=== PATIENT | male | born 1945 | race Caucasian/White ===

== ENCOUNTER → 2019-07-23 | Outpatient (CLI) | payer SELFPAY ==
[~2019-07-23] MED LIST: ACET325 PO; ALBU90OI INH; ASPI81CH PO; ATOR40TA PO; Aspirin EC81 MG PO; B Complex-Foli1 EACH PO; CALCIUM CIT 311 EACH PO; CEFP200 PO; CEPH500 PO; CHEMO; Culturelle1 CAP PO; Eligard45 MG SQ; Fish Oil Conc1000 MG PO; Flomax0.4 MG PO; Folic Acid-Vit1 EACH PO; LEVO750 PO; METO25 PO; METO25ER PO; PRED5; PREDNISONE; Prinivil10 MG PO; Robaxin750 MG PO; THERA1 EACH PO; TRIDERM28.4 GM TOP; UNKNOWN BP MED
[2019-07-23 15:12] LABS: Alanine Aminotransfer (ALT/SGP 35 U/L (12-78); Albumin, Blood 2.3 g/dL (3.4-5.0); Albumin/Globulin Ratio 0.6 (0.8-1.8); Alk Phos 503 U/L (50-136); Anion Gap 6 mmol/L (6-16); Aspartate Aminotrans (AST/SGOT 138 U/L (12-37); Bilirubin, Total 0.5 mg/dL (0.1-1.0); Blood Urea Nitrogen 15 mg/dL (8-24); Bun/Creatinine Ratio 17.7 (12.0-20.0); CO2, Blood 28 mmol/L (21-32); Chloride, Blood 107 mmol/L (98-108); Creatinine, Blood 0.85 mg/dL (0.60-1.20); Globulin, Blood 3.7 g/dL (2.2-4.0); Glomerular Filtration Rate >60 (60-); Glucose, Blood 104 mg/dL (70-99); Potassium, Blood 4.7 mmol/L (3.5-5.5); Sodium, Blood 141 mmol/L (136-145)
[2019-07-23 15:14] LABS: PSA, %Free 46.8 %
== END | disposition home or self-care (01) ==
LOC: LAB SHORT 12:58 → LAB 12:58
PROVIDERS: Internal Medicine Hematology & Oncology
DX: C61 Malignant neoplasm of prostate (principal)
CPT/HCPCS: 80053; 84153; 84154

== ENCOUNTER 2019-07-25 12:14 | Inpatient (IN) | payer MEDICARE ==
[~2019-07-25] VITALS: Ht 175.3 cm; Wt 80.6 kg
[~2019-07-25 12:14] MED LIST changes: -ACET325 PO; -B Complex-Foli1 EACH PO; -CALCIUM CIT 311 EACH PO; -CEFP200 PO; -Culturelle1 CAP PO; -Fish Oil Conc1000 MG PO; -Folic Acid-Vit1 EACH PO; -LEVO750 PO; -METO25ER PO; -PRED5; -THERA1 EACH PO
[2019-07-25 12:50] LABS: Hemoglobin 10.3 g/dL (13.5-17.5); Mean Corpuscular HGB 26.4 pg (26.0-34.0); Mean Corpuscular HGB Conc 31.2 g/dL (31.5-36.5); Mean Corpuscular Volume 85 fL (80-100); Mean Platelet Volume 8.9 fL (9.1-12.4); NRBC ABSOLUTE 0.12 K/mm3 (0.00-0.02); NRBC Auto 0.5 /100 WBC (0.0-0.2); Platelet Count 291 K/mm3 (150-400); RDW Coefficient Variation 20.2 % (11.7-14.2); RDW Standard Deviation 62.2 fL (35.1-46.3); White Blood Cell Count 23.46 K/mm3 (4.00-11.30)
[2019-07-25 13:09] LABS: Alanine Aminotransfer (ALT/SGP 32 U/L (12-78); Albumin, Blood 2.4 g/dL (3.4-5.0); Albumin/Globulin Ratio 0.5 (0.8-1.8); Alk Phos 638 U/L (50-136); Anion Gap 8 mmol/L (6-16); Aspartate Aminotrans (AST/SGOT 273 U/L (12-37); Bilirubin, Total 0.5 mg/dL (0.1-1.0); Blood Urea Nitrogen 18 mg/dL (8-24); Bun/Creatinine Ratio 19.5 (12.0-20.0); CO2, Blood 22 mmol/L (21-32); Calcium, Blood 7.7 mg/dL (8.5-10.1); Chloride, Blood 107 mmol/L (98-108); Creatinine, Blood 0.92 mg/dL (0.60-1.20); Globulin, Blood 4.4 g/dL (2.2-4.0); Glomerular Filtration Rate >60 (60-); Glucose, Blood 106 mg/dL (70-99); Potassium, Blood 3.9 mmol/L (3.5-5.5); Sodium, Blood 137 mmol/L (136-145); Total Protein, Blood 6.8 g/dL (6.4-8.2)
[2019-07-25 13:10] LABS: BAND PERCENT MAN 2 % (0-8); BASOPHILS PERCENT MAN 0 % (0-2); EOSINOPHILS PERCENT MAN 0 % (0-6); LYMPHOCYTES ABSOLUTE MAN 2.11 K/mm3 (0.84-5.20); LYMPHOCYTES PERCENT MAN 9 % (21-46); METAMYELOCYTE ABSOLUTE MAN 0.93 K/mm3 (0.00-0.00); METAMYELOCYTE PERCENT MAN 4 % (0-0); MONOCYTES ABSOLUTE MAN 2.34 K/mm3 (0.16-1.47); MONOCYTES PERCENT MAN 10 % (4-13); MYELOCYTE ABSOLUTE MAN 0.46 K/mm3 (0.00-0.00); MYELOCYTE PERCENT MAN 2 % (0-0); NEUTROPHILS ABSOLUTE MAN 17.59 K/mm3 (1.96-9.15); SEG NEUTROPHILS PERCENT MAN 73 % (41-73); TOTAL CELLS COUNTED 100
[2019-07-25] MEDS ORDERED: METO25ER PO (13:16)
[2019-07-25] MEDS ORDERED: PRED5 (13:17)
[2019-07-25 15:41] LABS: Blood, Urine 1+ (Neg); Glucose Qualitative, Urine Neg (Neg); Ketones, Urine 1+ (Neg); Leukocyte Esterase, Urine 2+ (Neg); Nitrite, Urine Pos (Neg); Protein, Urine 2+ (Neg); Urobilinogen, Urine 1+ (Normal)
[2019-07-25 15:49] LABS: Bilirubin, Urine 1+ (Neg)
[2019-07-25 15:51] LABS: Appearance, Urine Hazy (Clear); Color, Urine Amber (P-Yellow)
[2019-07-25 15:55] LABS: Red Blood Cells, Urine 0-2 /hpf (0-2)
[2019-07-25 15:56] LABS: Bacteria Many /hpf; Mucus Light (0-Heavy); Squamous Epithelial Cells Few /hpf (Few)
[2019-07-25] MEDS ORDERED: B Complex-Foli1 EACH PO (16:21)
[2019-07-25] MEDS ORDERED: THERA1 EACH PO (16:21)
[2019-07-25] MEDS ORDERED: CALCIUM CIT 311 EACH PO (16:22)
[2019-07-25] MEDS ORDERED: Fish Oil Conc1000 MG PO (16:22)
--- NOTE | 2019-07-25 20:16 | NUR ---
2010 PT ADMITTED TO ROOM 333 PER CART FROM ER.
--- NOTE | 2019-07-26 04:52 | NUR ---
SHIFT SUMMARY: 74 Y/O MALE RESTED COMFORTABLY ALL SHIFT, DENIES PAIN OR NAUSEA, BED LOW POSITION, CALL LIGHT AT SIDE.
[2019-07-26 05:06] LABS: Hematocrit 25.4 % (37.0-53.0); Hemoglobin 7.9 g/dL (13.5-17.5); Mean Corpuscular HGB 26.6 pg (26.0-34.0); Mean Corpuscular HGB Conc 31.1 g/dL (31.5-36.5); Mean Corpuscular Volume 86 fL (80-100); Mean Platelet Volume 8.9 fL (9.1-12.4); NRBC ABSOLUTE 0.04 K/mm3 (0.00-0.02); NRBC Auto 0.2 /100 WBC (0.0-0.2); Platelet Count 215 K/mm3 (150-400); RDW Coefficient Variation 20.1 % (11.7-14.2); RDW Standard Deviation 62.9 fL (35.1-46.3); Red Blood Cell Count 2.97 M/mm3 (4.30-5.90); White Blood Cell Count 18.81 K/mm3 (4.00-11.30)
[2019-07-26 05:24] LABS: BAND PERCENT MAN 5 % (0-8); BASOPHILS ABSOLUTE MAN 0.18 K/mm3 (0.00-0.23); BASOPHILS PERCENT MAN 1 % (0-2); EOSINOPHILS ABSOLUTE MAN 0.18 K/mm3 (0.00-0.68); EOSINOPHILS PERCENT MAN 1 % (0-6); LYMPHOCYTES ABSOLUTE MAN 0.56 K/mm3 (0.84-5.20); LYMPHOCYTES PERCENT MAN 3 % (21-46); METAMYELOCYTE ABSOLUTE MAN 0.37 K/mm3 (0.00-0.00); METAMYELOCYTE PERCENT MAN 2 % (0-0); MONOCYTES ABSOLUTE MAN 0.56 K/mm3 (0.16-1.47); MONOCYTES PERCENT MAN 3 % (4-13); MYELOCYTE ABSOLUTE MAN 0.18 K/mm3 (0.00-0.00); MYELOCYTE PERCENT MAN 1 % (0-0); NEUTROPHILS ABSOLUTE MAN 16.74 K/mm3 (1.96-9.15); SEG NEUTROPHILS PERCENT MAN 84 % (41-73); TOTAL CELLS COUNTED 100
--- NOTE | 2019-07-26 09:33 | NUR ---
CALLED DOWN TO CENTRAL SUPPLY; PATIENT NEEDS RED CRISTIANA #14 STRAIGHT CATHS TO EMPTY BLADDER. 2 CATHETERS SENT UP AND GIVEN TO PATIENT.
[2019-07-26 13:45] LABS: Hematocrit 25.8 % (37.0-53.0); Mean Corpuscular HGB 26.7 pg (26.0-34.0); Mean Corpuscular Volume 86 fL (80-100); Mean Platelet Volume 8.9 fL (9.1-12.4); NRBC ABSOLUTE 0.02 K/mm3 (0.00-0.02); NRBC Auto 0.1 /100 WBC (0.0-0.2); Platelet Count 224 K/mm3 (150-400); RDW Coefficient Variation 20.2 % (11.7-14.2); RDW Standard Deviation 64.1 fL (35.1-46.3); White Blood Cell Count 15.69 K/mm3 (4.00-11.30)
--- NOTE | 2019-07-26 14:05 | NUR ---
NOTIFIED ISTRATE OF PATIENT'S H&H; NO NEW ORDERS GIVEN AT THIS TIME.
[2019-07-26 14:17] LABS: BAND PERCENT MAN 3 % (0-8); BASOPHILS PERCENT MAN 0 % (0-2); EOSINOPHILS PERCENT MAN 0 % (0-6); LYMPHOCYTES ABSOLUTE MAN 1.09 K/mm3 (0.84-5.20); LYMPHOCYTES PERCENT MAN 7 % (21-46); METAMYELOCYTE ABSOLUTE MAN 0.31 K/mm3 (0.00-0.00); METAMYELOCYTE PERCENT MAN 2 % (0-0); MONOCYTES ABSOLUTE MAN 0.31 K/mm3 (0.16-1.47); MONOCYTES PERCENT MAN 2 % (4-13); NEUTROPHILS ABSOLUTE MAN 13.96 K/mm3 (1.96-9.15); SEG NEUTROPHILS PERCENT MAN 86 % (41-73); TOTAL CELLS COUNTED 100
--- NOTE | 2019-07-26 15:31 | NUR ---
SHIFT SUMMARY PATIENT IS ALERT AND ORIENTED. PLEASANT AND COOPERATIVE WITH STAFF. CONTINUES ON IV ABX WITHOUT S/SX OF ADVERSE REACTIONS NOTED OR REPORTED. CBC REDRAWN THIS AFTERNOON AND HEMAGLOBIN SLIGHTLY IMPROVED FROM THIS MORNING. BP CONTINUES TO RUN ON THE LOWER SIDE HOWEVER PATIENT DENIES DIZZINESS OR LIGHTHEADEDNESS. PATIENT STRAIGHT CATHS SELF PRN. NO ACUTE CHANGES NOTED THIS SHIFT. WILL CONTINUE TO MONITOR AND PROVIDE CARE NEEDED.
--- NOTE | 2019-07-27 06:41 | NUR ---
SHIFT SUMMARY: 74 Y/O MALE RESTED COMFORTABLY ALL SHIFT, PT STRAIGHT CATHED SELF FREQUENTLY THROUGHOUT SHIFT CLEAR YELLOW FLUID, DENIES PAIN OR NAUSEA, HAPPY AND COOPERATIVE, HG=8.0, BED LOW POSITION, CALL LIGHT AT SIDE.
[2019-07-27 13:50] LABS: Stool Occult Blood Guaiac 1 Pos (Neg)
[2019-07-27 15:54] LABS: Hematocrit 31.7 % (37.0-53.0); Mean Corpuscular HGB 27.5 pg (26.0-34.0); Mean Corpuscular HGB Conc 31.5 g/dL (31.5-36.5); Mean Corpuscular Volume 87 fL (80-100); Mean Platelet Volume 9.1 fL (9.1-12.4); NRBC ABSOLUTE 0.03 K/mm3 (0.00-0.02); NRBC Auto 0.2 /100 WBC (0.0-0.2); Platelet Count 238 K/mm3 (150-400); RDW Standard Deviation 60.5 fL (35.1-46.3); Red Blood Cell Count 3.64 M/mm3 (4.30-5.90); White Blood Cell Count 14.82 K/mm3 (4.00-11.30)
--- NOTE | 2019-07-27 17:50 | NUR ---
SHIFT SUMMARY PT AWAKE DURING SHIFT REPORT. A&O, VERY PLEASANT AND TALKATIVE. DENIED NEEDS AT THAT TIME, BUT LATER REQUESTED MORE CATHETERS TO SELF CATH. SPD NOTIFIED AND MORE CATHETERS OBTAINED. STOOL GUIAC OBTAINED AND SENT. DR IVAN TO TO SEE PT THIS AM. NEW ORDERS PLACED PRIOR TO D/C. PT TO RECEIVE 1 UNIT PRBC'S AND HAVE LAB DONE AND THEN TO D/C. BLOOD CONSENT SIGNED AND BLOOD STARTED PER ORDERS. LASIX GIVEN AFTER BLOOD AND LAB NOTIFIED FOR H&H. DR IVAN NOTIFIED WHEN LAB RESULTS COMPLETE. DR IVAN TO AND REPORTED GUIAC OBTAINED EARLIER WAS POSITIVE. TREATMENT OPTIONS DISCUSSED WITH PT. PT PREFFERING TO BE D/C'D TODAY AND F/U OUTPT FOR COLONOSCOPY. DR IVAN TO PLACE D/C ORDERS. PT'S FRIEND WAITING TO PICK HIM UP AND TAKE PT HOME. INDEPENDENT IN . CALL LT IN REACH.
[2019-07-27] MEDS ORDERED: Folic Acid-Vit1 EACH PO (18:15)
[2019-07-27] MEDS ORDERED: ACET325 PO (18:17)
[2019-07-27] MEDS ORDERED: CEFP200 PO (18:17)
[2019-07-27] MEDS ORDERED: Culturelle1 CAP PO (18:18)
[2019-07-28 08:07] LABS: HBSAG SCREEN Negative (Negative); HEP A AB, IGM Negative (Negative); HEP B CORE AB, IGM Negative (Negative); HEP C VIRUS AB <0.1 (0.0-0.9)
[2019-08-01] MEDS ORDERED: LEVO750 PO (23:15)
== END 2019-07-27 18:26 | disposition home or self-care (01) | DRG 872 ==
LOC: ER 12:14 → MEDS 16:29
PROVIDERS: Emergency Medicine; Family Medicine; ADMIT Hospitalist
DX: A41.9 Sepsis, unspecified organism (principal); N39.0 Urinary tract infection, site not specified; C78.00 Secondary malignant neoplasm of unspecified lung; C61 Malignant neoplasm of prostate; I25.10 Atherosclerotic heart disease of native coronary artery without angina pectoris; I48.0 Paroxysmal atrial fibrillation; R79.89 Other specified abnormal findings of blood chemistry; I10 Essential (primary) hypertension; N40.0 Benign prostatic hyperplasia without lower urinary tract symptoms; D64.9 Anemia, unspecified; Z87.891 Personal history of nicotine dependence; Z95.1 Presence of aortocoronary bypass graft; Z79.82 Long term (current) use of aspirin; Z79.899 Other long term (current) drug therapy
CPT/HCPCS: 36415; 36430; 71046; 76705; 80053; 80074; 81001; 82272; 82947; 83605; 85025; 85027; 86850; 86900; 86901; 86923; 87040; 87077; 87086; 87186; 93005; 93010; 94640; 94760; 96361; 96365; 96366; 96372-59; 97162; 97530; 99285-25; A9270; J0696; J1650; J1940; J7030; J7050; P9016

== ENCOUNTER 2019-08-07 10:44 | Emergency (ER) | payer OTHER ==
[~2019-08-07] VITALS: Ht 175.3 cm; Wt 77.1 kg
[~2019-08-07 10:44] MED LIST changes: +ACET325 PO; +B Complex-Foli1 EACH PO; +CALCIUM CIT 311 EACH PO; +CEFP200 PO; +Culturelle1 CAP PO; +Fish Oil Conc1000 MG PO; +Folic Acid-Vit1 EACH PO; +LEVO750 PO; +METO25ER PO; +PRED5; +THERA1 EACH PO
[2019-08-07] MEDS ORDERED: Levaquin750 MG (11:32)
[2019-08-07 12:09] LABS: Source, Urine Clean Catch
[2019-08-07 12:21] LABS: Bilirubin, Urine Neg (Neg); Blood, Urine Neg (Neg); Glucose Qualitative, Urine Neg (Neg); Ketones, Urine 2+ (Neg); Leukocyte Esterase, Urine 1+ (Neg); Nitrite, Urine Neg (Neg); Protein, Urine 2+ (Neg); Specific Gravity, Urine 1.025 (1.003-1.022); Urobilinogen, Urine NORM (Normal)
[2019-08-07 12:28] LABS: Color, Urine Yellow (P-Yellow)
[2019-08-07 12:29] LABS: Appearance, Urine Cloudy (Clear)
[2019-08-07 12:31] LABS: Red Blood Cells, Urine Not Seen /hpf (0-2)
[2019-08-07 12:32] LABS: Bacteria Many /hpf; Mucus Light (0-Heavy); Squamous Epithelial Cells Not Seen /hpf (Few)
== END 2019-08-07 12:17 | disposition home or self-care (01) ==
LOC: ER 10:44
PROVIDERS: Physician Assistant
DX: G89.29 Other chronic pain (principal); M25.551 Pain in right hip; N39.0 Urinary tract infection, site not specified; J18.9 Pneumonia, unspecified organism; I10 Essential (primary) hypertension; I48.91 Unspecified atrial fibrillation; Z85.46 Personal history of malignant neoplasm of prostate; Z87.891 Personal history of nicotine dependence; Z79.899 Other long term (current) drug therapy; Z79.82 Long term (current) use of aspirin
CPT/HCPCS: 81001; 87086; 96372; 99283-25; J1885

== ENCOUNTER 2019-08-12 08:41 | Emergency (ER) | payer OTHER ==
[~2019-08-12] VITALS: Ht 175.3 cm; Wt 74.8 kg
[~2019-08-12 08:41] MED LIST changes: +Levaquin750 MG
[2019-08-12] MEDS ORDERED: Ventolin/Prove6.7 GM INH (08:51)
[2019-08-12] MEDS ORDERED: NAPR220 PO (08:52)
[2019-08-12 09:31] LABS: Hematocrit 31.3 % (37.0-53.0); Hemoglobin 9.7 g/dL (13.5-17.5); Mean Corpuscular HGB 26.9 pg (26.0-34.0); Mean Corpuscular Volume 87 fL (80-100); Mean Platelet Volume 9.8 fL (9.1-12.4); NRBC ABSOLUTE 0.11 K/mm3 (0.00-0.02); NRBC Auto 1.9 /100 WBC (0.0-0.2); Platelet Count 187 K/mm3 (150-400); RDW Coefficient Variation 19.9 % (11.7-14.2); RDW Standard Deviation 64.1 fL (35.1-46.3)
[2019-08-12 09:49] LABS: BAND PERCENT MAN 2 % (0-8); BASOPHILS PERCENT MAN 0 % (0-2); EOSINOPHILS PERCENT MAN 0 % (0-6); LYMPHOCYTES ABSOLUTE MAN 1.14 K/mm3 (0.84-5.20); LYMPHOCYTES PERCENT MAN 20 % (21-46); METAMYELOCYTE ABSOLUTE MAN 0.17 K/mm3 (0.00-0.00); METAMYELOCYTE PERCENT MAN 3 % (0-0); MONOCYTES ABSOLUTE MAN 0.45 K/mm3 (0.16-1.47); MONOCYTES PERCENT MAN 8 % (4-13); MYELOCYTE ABSOLUTE MAN 0.39 K/mm3 (0.00-0.00); MYELOCYTE PERCENT MAN 7 % (0-0); NEUTROPHILS ABSOLUTE MAN 3.53 K/mm3 (1.96-9.15); SEG NEUTROPHILS PERCENT MAN 60 % (41-73); TOTAL CELLS COUNTED 100
[2019-08-12 09:52] LABS: Alanine Aminotransfer (ALT/SGP 28 U/L (12-78); Albumin, Blood 2.3 g/dL (3.4-5.0); Albumin/Globulin Ratio 0.6 (0.8-1.8); Alk Phos 369 U/L (50-136); Anion Gap 9 mmol/L (6-16); Aspartate Aminotrans (AST/SGOT 66 U/L (12-37); Bilirubin, Total 0.4 mg/dL (0.1-1.0); Blood Urea Nitrogen 25 mg/dL (8-24); Bun/Creatinine Ratio 31.3 (12.0-20.0); CO2, Blood 22 mmol/L (21-32); Calcium, Blood 7.4 mg/dL (8.5-10.1); Chloride, Blood 109 mmol/L (98-108); Globulin, Blood 3.8 g/dL (2.2-4.0); Glomerular Filtration Rate >60 (60-); Glucose, Blood 130 mg/dL (70-99); Potassium, Blood 4.2 mmol/L (3.5-5.5); Sodium, Blood 140 mmol/L (136-145); Total Protein, Blood 6.1 g/dL (6.4-8.2); Troponin I <0.015 ng/mL (0.000-0.040)
[2019-08-12 10:20] LABS: Source, Urine Clean Catch
[2019-08-12 10:22] LABS: Bilirubin, Urine Neg (Neg); Blood, Urine Neg (Neg); Glucose Qualitative, Urine Neg (Neg); Ketones, Urine Neg (Neg); Leukocyte Esterase, Urine 1+ (Neg); Nitrite, Urine Neg (Neg); Protein, Urine 1+ (Neg); Specific Gravity, Urine 1.015 (1.003-1.022); Urobilinogen, Urine NORM (Normal)
[2019-08-12 10:29] LABS: Appearance, Urine Clear (Clear); Bacteria Rare /hpf; Color, Urine Yellow (P-Yellow); Red Blood Cells, Urine Not Seen /hpf (0-2); Squamous Epithelial Cells Not Seen /hpf (Few); White Blood Cells, Urine 0-2 /hpf (0-5); Yeast/Fungi Urine Not Seen /hpf
== END 2019-08-12 12:59 | disposition home or self-care (01) ==
LOC: ER 08:41
PROVIDERS: Physician Assistant
DX: R53.1 Weakness (principal); C61 Malignant neoplasm of prostate; D64.9 Anemia, unspecified; I10 Essential (primary) hypertension; I25.10 Atherosclerotic heart disease of native coronary artery without angina pectoris; Z87.891 Personal history of nicotine dependence; Z79.899 Other long term (current) drug therapy; Z79.82 Long term (current) use of aspirin
CPT/HCPCS: 70450; 80053; 81001; 84484; 85025; 87086; 93005; 93010; 99284-25; J7120

== ENCOUNTER 2019-08-22 00:37 | Day surgery (SDC) | payer OTHER ==
[~2019-08-22 00:37] MED LIST changes: +NAPR220 PO; +Ventolin/Prove6.7 GM INH
[2019-08-22] MEDS ORDERED: CEPH500 PO (08:20)
[2019-08-22] MEDS ORDERED: METO25ER PO (08:20)
[2019-08-22] MEDS ORDERED: FAMC500 PO (08:21)
[2019-08-22] MEDS ORDERED: PRED5 PO (08:22)
[2019-08-22] MEDS ORDERED: MEGESTROL400 MG/10 PO (08:22)
== END 2019-08-22 11:44 | disposition home or self-care (01) ==
LOC: ATC 00:37
DX: C61 Malignant neoplasm of prostate (principal); I10 Essential (primary) hypertension; E78.5 Hyperlipidemia, unspecified; I25.10 Atherosclerotic heart disease of native coronary artery without angina pectoris; I25.2 Old myocardial infarction; Z87.891 Personal history of nicotine dependence; Z95.1 Presence of aortocoronary bypass graft; Z79.82 Long term (current) use of aspirin; Z79.899 Other long term (current) drug therapy
CPT/HCPCS: 36415; 86850; 86900; 86901; 86923; J1642; J7050; P9016

== ENCOUNTER → 2019-08-28 | Outpatient (CLI) | payer OTHER ==
[~2019-08-28] MED LIST changes: +Anti-Diarrheal2 MG PO; +FAMC500 PO; +Florastor250 MG PO; +LANOXIN125 MCG PO; +LOVAZA1 GM PO; +MEGESTROL400 MG/10 PO; +MORP20L PO; +OMEPRAZOLE20 MG PO; +ONDA4ODT PO; +Oyster Shell C500 MG PO; +PRED5 PO; +Robaxin-750750 MG PO; +VANCOCIN HCL125 MG PO; +Vancocin HCL1000 MG PO
[2019-08-28 15:49] LABS: Alanine Aminotransfer (ALT/SGP 45 U/L (12-78); Albumin, Blood 2.4 g/dL (3.4-5.0); Albumin/Globulin Ratio 0.7 (0.8-1.8); Alk Phos 231 U/L (50-136); Anion Gap 11 mmol/L (6-16); Aspartate Aminotrans (AST/SGOT 44 U/L (12-37); Bilirubin, Total 0.6 mg/dL (0.1-1.0); Blood Urea Nitrogen 22 mg/dL (8-24); Bun/Creatinine Ratio 25.4 (12.0-20.0); CO2, Blood 21 mmol/L (21-32); Chloride, Blood 109 mmol/L (98-108); Creatinine, Blood 0.87 mg/dL (0.60-1.20); Globulin, Blood 3.5 g/dL (2.2-4.0); Glomerular Filtration Rate >60 (60-); Glucose, Blood 134 mg/dL (70-99); Potassium, Blood 4.8 mmol/L (3.5-5.5); Sodium, Blood 141 mmol/L (136-145); Total Protein, Blood 5.9 g/dL (6.4-8.2)
[2019-08-28 16:04] LABS: PSA, %Free 36.1 %
== END | disposition home or self-care (01) ==
LOC: LAB SHORT 11:00 → LAB 11:00
PROVIDERS: Internal Medicine Hematology & Oncology
DX: C61 Malignant neoplasm of prostate (principal)
CPT/HCPCS: 80053; 84153; 84154

== ENCOUNTER 2019-08-31 18:04 | Observation (INO) | payer OTHER ==
[~2019-08-31] VITALS: Ht 175.3 cm; Wt 70.0 kg
[~2019-08-31 18:04] MED LIST changes: -Anti-Diarrheal2 MG PO; -Florastor250 MG PO; -LANOXIN125 MCG PO; -LOVAZA1 GM PO; -MORP20L PO; -OMEPRAZOLE20 MG PO; -ONDA4ODT PO; -Oyster Shell C500 MG PO; -Robaxin-750750 MG PO; -VANCOCIN HCL125 MG PO; -Vancocin HCL1000 MG PO
[2019-08-31 18:51] LABS: Hematocrit 30.4 % (37.0-53.0); Hemoglobin 9.7 g/dL (13.5-17.5); Mean Corpuscular HGB 27.9 pg (26.0-34.0); Mean Corpuscular HGB Conc 31.9 g/dL (31.5-36.5); Mean Corpuscular Volume 87 fL (80-100); Mean Platelet Volume 9.7 fL (9.1-12.4); NRBC ABSOLUTE 0.03 K/mm3 (0.00-0.02); NRBC Auto 1.9 /100 WBC (0.0-0.2); Platelet Count 148 K/mm3 (150-400); RDW Coefficient Variation 18.1 % (11.7-14.2); RDW Standard Deviation 57.9 fL (35.1-46.3); Red Blood Cell Count 3.48 M/mm3 (4.30-5.90); White Blood Cell Count 1.61 K/mm3 (4.00-11.30)
[2019-08-31 19:03] LABS: Alanine Aminotransfer (ALT/SGP 26 U/L (12-78); Albumin, Blood 2.2 g/dL (3.4-5.0); Albumin/Globulin Ratio 0.7 (0.8-1.8); Alk Phos 151 U/L (50-136); Anion Gap 9 mmol/L (6-16); Aspartate Aminotrans (AST/SGOT 30 U/L (12-37); Bilirubin, Total 0.5 mg/dL (0.1-1.0); Blood Urea Nitrogen 16 mg/dL (8-24); Bun/Creatinine Ratio 19.1 (12.0-20.0); CO2, Blood 21 mmol/L (21-32); Calcium, Blood 7.1 mg/dL (8.5-10.1); Chloride, Blood 108 mmol/L (98-108); Creatinine, Blood 0.84 mg/dL (0.60-1.20); Globulin, Blood 3.2 g/dL (2.2-4.0); Glomerular Filtration Rate >60 (60-); Glucose, Blood 88 mg/dL (70-99); Potassium, Blood 3.4 mmol/L (3.5-5.5); Sodium, Blood 138 mmol/L (136-145); Total Protein, Blood 5.4 g/dL (6.4-8.2); Troponin I 0.024 ng/mL (0.000-0.040)
[2019-08-31 19:24] LABS: BAND PERCENT MAN 6 % (0-8); BASOPHILS PERCENT MAN 0 % (0-2); EOSINOPHILS PERCENT MAN 0 % (0-6); LYMPHOCYTES ABSOLUTE MAN 0.49 K/mm3 (0.84-5.20); LYMPHOCYTES PERCENT MAN 31 % (21-46); METAMYELOCYTE ABSOLUTE MAN 0.08 K/mm3 (0.00-0.00); METAMYELOCYTE PERCENT MAN 5 % (0-0); MONOCYTES ABSOLUTE MAN 0.12 K/mm3 (0.16-1.47); MONOCYTES PERCENT MAN 8 % (4-13); MYELOCYTE ABSOLUTE MAN 0.06 K/mm3 (0.00-0.00); MYELOCYTE PERCENT MAN 4 % (0-0); NEUTROPHILS ABSOLUTE MAN 0.83 K/mm3 (1.96-9.15); SEG NEUTROPHILS PERCENT MAN 46 % (41-73); TOTAL CELLS COUNTED 100
[2019-08-31] MEDS ORDERED: LANOXIN125 MCG PO (22:59)
[2019-08-31] MEDS ORDERED: OMEPRAZOLE20 MG PO (23:00)
[2019-09-01 04:49] LABS: Hemoglobin 8.9 g/dL (13.5-17.5); Mean Corpuscular HGB 27.7 pg (26.0-34.0); Mean Corpuscular HGB Conc 31.8 g/dL (31.5-36.5); Mean Corpuscular Volume 87 fL (80-100); Mean Platelet Volume 9.2 fL (9.1-12.4); NRBC ABSOLUTE 0.02 K/mm3 (0.00-0.02); NRBC Auto 0.9 /100 WBC (0.0-0.2); Platelet Count 145 K/mm3 (150-400); RDW Standard Deviation 57.6 fL (35.1-46.3); Red Blood Cell Count 3.21 M/mm3 (4.30-5.90); White Blood Cell Count 2.27 K/mm3 (4.00-11.30)
[2019-09-01 05:07] LABS: Alanine Aminotransfer (ALT/SGP 22 U/L (12-78); Albumin/Globulin Ratio 0.6 (0.8-1.8); Alk Phos 138 U/L (50-136); Anion Gap 8 mmol/L (6-16); Aspartate Aminotrans (AST/SGOT 32 U/L (12-37); Bilirubin, Total 0.4 mg/dL (0.1-1.0); Blood Urea Nitrogen 13 mg/dL (8-24); Bun/Creatinine Ratio 17.2 (12.0-20.0); CO2, Blood 22 mmol/L (21-32); Chloride, Blood 110 mmol/L (98-108); Creatinine, Blood 0.76 mg/dL (0.60-1.20); Globulin, Blood 3.2 g/dL (2.2-4.0); Glomerular Filtration Rate >60 (60-); Glucose, Blood 133 mg/dL (70-99); Potassium, Blood 4.1 mmol/L (3.5-5.5); Sodium, Blood 140 mmol/L (136-145); Total Protein, Blood 5.2 g/dL (6.4-8.2)
--- NOTE | 2019-09-01 05:18 | NUR ---
SHIFT SUMMARY PT NEW ADMIT TO FLOOR LAST NIGHT. AOX4. VSS. DENIES PAIN, N/V, DYSPNEA, SYNCOPE, CHILLS, PALPITATIONS. REPORTS HE HAS BEEN HAVING LIQUID INCONTINENT BM FOR A FEW DAYS. HAD 1 LIQUID BM THIS SHIFT, WAS ABLE TO GET SAMPLE FOR GI PANEL PER ORDERS, DENIES ANY ABD TENDERNESS. REPORTS HE CHRONICALLY SELF STRAIGHT CATHS & HAS BEEN FOR OVER 1 YR, TALKED TO DR. BATES & GOT ORDER FOR PT TO SELF CATH. POST VOID BLADDER SCAN SHOWED 38ML AFTER 400ML OUTPUT. STATES HE HASN'T HAD AN APPETITE FOR THE PAST 2 WEEKS, EVER SINCE CHEMO WAS CHANGED. CLINIMEX RUNNING @75ML/HR. CALL LIGHT IS IN REACH & I WILL CONT TO MONITOR.
[2019-09-01 06:21] LABS: Adenovirus F 40/41 Not Detected (NOT DETECT); Astrovirus Not Detected (NOT DETECT); Campylobacter Sp Not Detected (NOT DETECT); Cryptosporidium Not Detected (NOT DETECT); Cyclospora Cayetanensis Not Detected (NOT DETECT); E. Coli O157 Not Detected (NOT DETECT); Entamoeba Histolytica Not Detected (NOT DETECT); Enteroaggregative E. coli-EAEC Not Detected (NOT DETECT); Enteropathogenic E. coli-EPEC Not Detected (NOT DETECT); Enterotoxigenic E. coli-ETEC Not Detected (NOT DETECT); Giardia Lamblia Not Detected (NOT DETECT); Norovirus GI/GII Not Detected (NOT DETECT); Plesiomonas Shigelloides Not Detected (NOT DETECT); Rotavirus A Not Detected (NOT DETECT); Salmonella Sp Not Detected (NOT DETECT); Sapovirus Not Detected (NOT DETECT); Shiga Toxin-prod E. coli-STEC Not Detected (NOT DETECT); Shigella/Enteroin E. coli-EIEC Not Detected (NOT DETECT); Vibrio Cholerae Not Detected (NOT DETECT); Vibrio Sp Not Detected (NOT DETECT); Yersinia Enterocolitica Not Detected (NOT DETECT)
[2019-09-01 07:20] LABS: Digoxin (Lanoxin) 0.78 ug/mL (0.80-2.00)
--- NOTE | 2019-09-01 17:37 | NUR ---
PT ALERT AND ORIENTED. PT HAS A FIELD START IV THAT IS RUNNING CLINIMIX IN THE [facility] AC IT IS POSSITIONAL. PT IS AWARE OF THE ISSUE AND MAKES EVERY EFFORT TO KEEP THE EXTREMITY STRAIGHT. PT IS CURRENTLY IN BED WITH HIS CALL LIGHT IN REACH. PT CALLS APPROPRIATELY, PT HAD TWO EPPISODES OF SYNCOPE AT HOME PRIOR TO ADMIT. PT HAS HIS OWN STRAIGHT CATH SUPPLIES IN THE ROOM AND HANDLES THIS INDEPENDENTLY. PT POSSITIVE FOR CDIFF BUT NEGATIVE FOR ANTIGENS, STILL HAVING LOOSE STOOLS SO WILL BE MEDICATED WITH ORAL VANCO QID FOR 7-[address] WILL VALDIVIA TODAY.
[2019-09-02 04:59] LABS: BASOPHILS ABSOLUTE AUTO 0.03 K/mm3 (0.00-0.23); BASOPHILS PERCENT AUTO 1 % (0-2); EOSINOPHILS PERCENT AUTO 0 % (0-6); Hematocrit 27.4 % (37.0-53.0); Hemoglobin 8.8 g/dL (13.5-17.5); IMMATURE GRAN ABSOLUTE AUTO 0.57 K/mm3 (0.00-0.10); IMMATURE GRAN PERCENT AUTO 13 % (0-1); LYMPHOCYTES ABSOLUTE AUTO 0.81 K/mm3 (0.84-5.20); LYMPHOCYTES PERCENT AUTO 19 % (21-46); MONOCYTES ABSOLUTE AUTO 0.49 K/mm3 (0.16-1.47); MONOCYTES PERCENT AUTO 11 % (4-13); Mean Corpuscular HGB 27.5 pg (26.0-34.0); Mean Corpuscular HGB Conc 32.1 g/dL (31.5-36.5); Mean Corpuscular Volume 86 fL (80-100); Mean Platelet Volume 9.5 fL (9.1-12.4); NEUTROPHILS ABSOLUTE AUTO 2.38 K/mm3 (1.96-9.15); NEUTROPHILS PERCENT AUTO 56 % (41-73); NRBC ABSOLUTE 0.07 K/mm3 (0.00-0.02); NRBC Auto 1.6 /100 WBC (0.0-0.2); Platelet Count 146 K/mm3 (150-400); RDW Coefficient Variation 18.1 % (11.7-14.2); RDW Standard Deviation 55.5 fL (35.1-46.3); White Blood Cell Count 4.28 K/mm3 (4.00-11.30)
[2019-09-02 05:19] LABS: Anion Gap 7 mmol/L (6-16); Blood Urea Nitrogen 13 mg/dL (8-24); CO2, Blood 24 mmol/L (21-32); Calcium, Blood 7.8 mg/dL (8.5-10.1); Chloride, Blood 108 mmol/L (98-108); Creatinine, Blood 0.72 mg/dL (0.60-1.20); Glomerular Filtration Rate >60 (60-); Glucose, Blood 127 mg/dL (70-99); Potassium, Blood 3.9 mmol/L (3.5-5.5); Sodium, Blood 139 mmol/L (136-145)
[2019-09-02 05:24] LABS: BAND PERCENT MAN 16 % (0-8); BASOPHILS PERCENT MAN 0 % (0-2); EOSINOPHILS PERCENT MAN 0 % (0-6); LYMPHOCYTES ABSOLUTE MAN 0.94 K/mm3 (0.84-5.20); LYMPHOCYTES PERCENT MAN 22 % (21-46); METAMYELOCYTE ABSOLUTE MAN 0.34 K/mm3 (0.00-0.00); METAMYELOCYTE PERCENT MAN 8 % (0-0); MONOCYTES ABSOLUTE MAN 0.29 K/mm3 (0.16-1.47); MONOCYTES PERCENT MAN 7 % (4-13); MYELOCYTE ABSOLUTE MAN 0.17 K/mm3 (0.00-0.00); MYELOCYTE PERCENT MAN 4 % (0-0); NEUTROPHILS ABSOLUTE MAN 2.48 K/mm3 (1.96-9.15); PROMYELOCYTE ABSOLUTE MAN 0.04 K/mm3 (0.00-0.00); PROMYELOCYTE PERCENT MAN 1 % (0-0); SEG NEUTROPHILS PERCENT MAN 42 % (41-73); TOTAL CELLS COUNTED 100
--- NOTE | 2019-09-02 06:24 | NUR ---
SHIFT SUMMARY NO ACUTE CHANGES THIS SHIFT. VSS. AOX4. CINIMEX DC'D PER ORDERS. PT REPORTS HAVING A SLIGHT APPETITE. TELE RUNING NSR W/HR 80 PER PCU LEAD CARE MANAGER. PT STRAIGHT CATHED SELF PER ORDERS. DENIES N/V, PAIN OR DYSPNEA. PT STATES HE FEELS HE'S NOT READY TO DC HOME UNTIL HE GETS TO WORK WITH PT, I WILL PASS INFO TO ONCOMING DAY NURSE. CALL LIGHT IN REACH.
--- NOTE | 2019-09-02 17:09 | NUR ---
SUMMARY PT SITTING UP IN BED WATCHING TV, PT HAS BEEN PLEASANT AND COOPERATIVE WITH CARE T/O THE DAY, MINIMAL DIARRHEA REPORTED, PT WAS ABLE TO WORK WITH PT/OT, HOME HEALTH IS RECOMMENDED, VSS, NO ACUTE CHANGES, WILL CONT TO MONITOR
[2019-09-03 05:33] LABS: BASOPHILS ABSOLUTE AUTO 0.07 K/mm3 (0.00-0.23); BASOPHILS PERCENT AUTO 1 % (0-2); Hematocrit 29.1 % (37.0-53.0); Hemoglobin 9.1 g/dL (13.5-17.5); LYMPHOCYTES ABSOLUTE AUTO 1.04 K/mm3 (0.84-5.20); LYMPHOCYTES PERCENT AUTO 13 % (21-46); MONOCYTES ABSOLUTE AUTO 0.82 K/mm3 (0.16-1.47); MONOCYTES PERCENT AUTO 11 % (4-13); Mean Corpuscular HGB 26.8 pg (26.0-34.0); Mean Corpuscular HGB Conc 31.3 g/dL (31.5-36.5); Mean Corpuscular Volume 86 fL (80-100); Mean Platelet Volume 9.6 fL (9.1-12.4); NRBC ABSOLUTE 0.16 K/mm3 (0.00-0.02); NRBC Auto 2.1 /100 WBC (0.0-0.2); Platelet Count 143 K/mm3 (150-400); RDW Coefficient Variation 18.4 % (11.7-14.2); RDW Standard Deviation 55.8 fL (35.1-46.3); White Blood Cell Count 7.74 K/mm3 (4.00-11.30)
[2019-09-03 05:37] LABS: EOSINOPHILS PERCENT AUTO 0 % (0-6); IMMATURE GRAN ABSOLUTE AUTO 1.39 K/mm3 (0.00-0.10); IMMATURE GRAN PERCENT AUTO 18 % (0-1); NEUTROPHILS ABSOLUTE AUTO 4.42 K/mm3 (1.96-9.15); NEUTROPHILS PERCENT AUTO 57 % (41-73)
[2019-09-03 05:58] LABS: Anion Gap 11 mmol/L (6-16); Blood Urea Nitrogen 12 mg/dL (8-24); Bun/Creatinine Ratio 15.4 (12.0-20.0); CO2, Blood 20 mmol/L (21-32); Calcium, Blood 7.7 mg/dL (8.5-10.1); Chloride, Blood 111 mmol/L (98-108); Creatinine, Blood 0.78 mg/dL (0.60-1.20); Glomerular Filtration Rate >60 (60-); Glucose, Blood 118 mg/dL (70-99); Potassium, Blood 3.9 mmol/L (3.5-5.5); Sodium, Blood 142 mmol/L (136-145)
--- NOTE | 2019-09-03 05:59 | NUR ---
SHIFT SUMMARY NO ACUTE CHANGES THIS SHIFT. SLEPT WELL. AOX4. VSS. DENIES PAIN, N/V, DYSPNEA, DIZZINESS. HAD 1 MEDIUM LIQUID BM THIS SHIFT. STRAIGHT CATHS SELF FOR RETENTION PER ORDERS SINCE HE DOES THIS @HOME. CALL LIGHT IN REACH.
[2019-09-03 06:01] LABS: BAND PERCENT MAN 17 % (0-8); BASOPHILS PERCENT MAN 0 % (0-2); EOSINOPHILS PERCENT MAN 0 % (0-6); LYMPHOCYTES ABSOLUTE MAN 0.85 K/mm3 (0.84-5.20); LYMPHOCYTES PERCENT MAN 11 % (21-46); METAMYELOCYTE ABSOLUTE MAN 0.54 K/mm3 (0.00-0.00); METAMYELOCYTE PERCENT MAN 7 % (0-0); MONOCYTES ABSOLUTE MAN 0.38 K/mm3 (0.16-1.47); MONOCYTES PERCENT MAN 5 % (4-13); MYELOCYTE ABSOLUTE MAN 0.38 K/mm3 (0.00-0.00); MYELOCYTE PERCENT MAN 5 % (0-0); NEUTROPHILS ABSOLUTE MAN 5.34 K/mm3 (1.96-9.15); PROMYELOCYTE ABSOLUTE MAN 0.23 K/mm3 (0.00-0.00); PROMYELOCYTE PERCENT MAN 3 % (0-0); SEG NEUTROPHILS PERCENT MAN 52 % (41-73); TOTAL CELLS COUNTED 100
--- NOTE | 2019-09-03 12:14 | NUR ---
PHYTHER IN FOR [place], STATE PT HAD LOW BP 89/64 WHILE LYING DOWN, QFTER BED EXERCISES INCREASE TO 114/84. STATE WHEN PT SAT UP ON SIDE OF BED BP DROPPED TO 89/53, 93/50 SO THEY DID NOT STAND. PT STATE NO DIZZINESS DURING TX. DR IVAN NOTIFIED, STATE R/T NEED FOR OUTPT CAROTID PROCEDURE, PROCEED W D/C.
[2019-09-03] MEDS ORDERED: Oyster Shell C500 MG PO (12:15)
[2019-09-03] MEDS ORDERED: Anti-Diarrheal2 MG PO (12:16)
[2019-09-03] MEDS ORDERED: LOVAZA1 GM PO (12:16)
[2019-09-03] MEDS ORDERED: Florastor250 MG PO (12:17)
[2019-09-03] MEDS ORDERED: ONDA4ODT PO (12:17)
[2019-09-03] MEDS ORDERED: Vancocin HCL1000 MG PO (12:22)
--- NOTE | 2019-09-03 14:12 | NUR ---
DISCHARGE/SUMMARY DR ÁLVAREZTRATE IN TO SEE PT THIS AM, STATE NEED FOR CAROTID ARTERY SURG THAT WE ARE UNABLE TO DO AT THIS HOSP. STATE PROCEDURE MAY BE DONE OUTPT & COORDINATED BY HIS PCP @ THE [place] [facility]. D/C HOME ORDERS PLACED. ORDERS FAXED TO [place] [facility]. D/C INSTRUCT PROVIDED. F/U APPT w PCP ARRANGED BY RENOVATOR MACHINE OPERATOR w ATTN TO ARRANGE CAROTID PROCEDURE. IV D/C INTACT. PT WAS INITIALLY RELUCTANT TO D/C, STATE DESIRE TO REMAIN IN HOSP THRU THANKSGIVING. RENOVATOR MACHINE OPERATOR & SOCSERV ABLE TO REASSURE HIM & EXPLAIN NEED FOR D/C. PT VERBALIZE UNDERSTANDING, PLEASANT AFFECT. STATE FRIENDS ARE IN ROUTE FOR TRANSPORT HOME. PAN WASHER HAND ASSIST HIM TO DRESS & GATHER BELONGINGS.
--- NOTE | 2019-09-03 15:20 | NUR ---
PT'S FRIENDS IN FOR TRANSPORT HOME & TRANSPORT TO PHARMACY. CORD CUTTER PROVIDE W/C ESCORT FROM HOSP. HE IS PLEASANT/APPRECIATIVE.
== END 2019-09-03 15:13 | disposition home health service (06) ==
LOC: ER 18:04 → MEDS 21:40
PROVIDERS: Emergency Medicine; Family Medicine; Internal Medicine; ADMIT Internal Medicine
DX: I65.23 Occlusion and stenosis of bilateral carotid arteries (principal); A04.72 Enterocolitis due to Clostridium difficile, not specified as recurrent; E27.40 Unspecified adrenocortical insufficiency; E87.6 Hypokalemia; I25.10 Atherosclerotic heart disease of native coronary artery without angina pectoris; C61 Malignant neoplasm of prostate; C79.9 Secondary malignant neoplasm of unspecified site; I48.0 Paroxysmal atrial fibrillation; N40.0 Benign prostatic hyperplasia without lower urinary tract symptoms; E88.09 Other disorders of plasma-protein metabolism, not elsewhere classified; E86.0 Dehydration; D70.9 Neutropenia, unspecified; I11.0 Hypertensive heart disease with heart failure; I50.9 Heart failure, unspecified; I95.9 Hypotension, unspecified; F41.9 Anxiety disorder, unspecified; F32.9 Major depressive disorder, single episode, unspecified; D70.1 Agranulocytosis secondary to cancer chemotherapy; T45.1X5A Adverse effect of antineoplastic and immunosuppressive drugs, initial encounter; Z66 Do not resuscitate; Z95.1 Presence of aortocoronary bypass graft; Z79.51 Long term (current) use of inhaled steroids; Z79.82 Long term (current) use of aspirin; Z79.899 Other long term (current) drug therapy
CPT/HCPCS: 0097U; 36415; 70450; 80048; 80053; 80162; 82330; 83735; 84443; 84484; 85025; 85027; 87324; 90471; 90714; 93005; 93010; 93306; 93880; 96360; 97110; 97116; 97163; 97165; 97530; 99285-25; J1650; J1720; J7120

== ENCOUNTER 2019-09-07 10:07 | Inpatient (IN) | payer OTHER, MEDICARE ==
[~2019-09-07] VITALS: Ht 175.3 cm; Wt 60.1 kg
[~2019-09-07 10:07] MED LIST changes: +Anti-Diarrheal2 MG PO; +Florastor250 MG PO; +LANOXIN125 MCG PO; +LOVAZA1 GM PO; +OMEPRAZOLE20 MG PO; +ONDA4ODT PO; +Oyster Shell C500 MG PO; +Vancocin HCL1000 MG PO
[2019-09-07 11:01] LABS: BASOPHILS ABSOLUTE AUTO 0.04 K/mm3 (0.00-0.23); BASOPHILS PERCENT AUTO 0 % (0-2); Hematocrit 30.2 % (37.0-53.0); Hemoglobin 9.4 g/dL (13.5-17.5); LYMPHOCYTES PERCENT AUTO 6 % (21-46); MONOCYTES ABSOLUTE AUTO 0.81 K/mm3 (0.16-1.47); MONOCYTES PERCENT AUTO 6 % (4-13); Mean Corpuscular HGB 27.6 pg (26.0-34.0); Mean Corpuscular HGB Conc 31.1 g/dL (31.5-36.5); Mean Platelet Volume 9.8 fL (9.1-12.4); NRBC ABSOLUTE 0.29 K/mm3 (0.00-0.02); NRBC Auto 2.1 /100 WBC (0.0-0.2); Platelet Count 127 K/mm3 (150-400); RDW Coefficient Variation 19.9 % (11.7-14.2); RDW Standard Deviation 63.3 fL (35.1-46.3); White Blood Cell Count 13.96 K/mm3 (4.00-11.30)
[2019-09-07 11:08] LABS: EOSINOPHILS PERCENT AUTO 0 % (0-6); IMMATURE GRAN ABSOLUTE AUTO 1.75 K/mm3 (0.00-0.10); IMMATURE GRAN PERCENT AUTO 13 % (0-1); Mean Corpuscular Volume 89 fL (80-100); NEUTROPHILS ABSOLUTE AUTO 10.46 K/mm3 (1.96-9.15); NEUTROPHILS PERCENT AUTO 75 % (41-73)
[2019-09-07 11:10] LABS: Alanine Aminotransfer (ALT/SGP 21 U/L (12-78); Albumin/Globulin Ratio 0.6 (0.8-1.8); Alk Phos 97 U/L (50-136); Anion Gap 11 mmol/L (6-16); Aspartate Aminotrans (AST/SGOT 45 U/L (12-37); Bilirubin, Total 0.6 mg/dL (0.1-1.0); Blood Urea Nitrogen 10 mg/dL (8-24); Bun/Creatinine Ratio 12.4 (12.0-20.0); CO2, Blood 21 mmol/L (21-32); Calcium, Blood 6.6 mg/dL (8.5-10.1); Chloride, Blood 109 mmol/L (98-108); Creatinine, Blood 0.81 mg/dL (0.60-1.20); Globulin, Blood 3.1 g/dL (2.2-4.0); Glomerular Filtration Rate >60 (60-); Glucose, Blood 114 mg/dL (70-99); Potassium, Blood 3.4 mmol/L (3.5-5.5); Sodium, Blood 141 mmol/L (136-145); Total Protein, Blood 5.1 g/dL (6.4-8.2)
[2019-09-07 11:21] LABS: BAND PERCENT MAN 1 % (0-8); BASOPHILS PERCENT MAN 0 % (0-2); EOSINOPHILS PERCENT MAN 0 % (0-6); LYMPHOCYTES ABSOLUTE MAN 0.55 K/mm3 (0.84-5.20); LYMPHOCYTES PERCENT MAN 4 % (21-46); METAMYELOCYTE ABSOLUTE MAN 0.41 K/mm3 (0.00-0.00); METAMYELOCYTE PERCENT MAN 3 % (0-0); MONOCYTES ABSOLUTE MAN 0.55 K/mm3 (0.16-1.47); MONOCYTES PERCENT MAN 4 % (4-13); MYELOCYTE ABSOLUTE MAN 0.27 K/mm3 (0.00-0.00); MYELOCYTE PERCENT MAN 2 % (0-0); NEUTROPHILS ABSOLUTE MAN 12.14 K/mm3 (1.96-9.15); SEG NEUTROPHILS PERCENT MAN 86 % (41-73); TOTAL CELLS COUNTED 100
[2019-09-07 11:49] LABS: Digoxin (Lanoxin) 0.58 ug/mL (0.80-2.00)
[2019-09-07] MEDS ORDERED: Oyster Shell C500 MG PO (12:58)
[2019-09-07] MEDS ORDERED: Robaxin-750750 MG PO (13:00)
--- NOTE | 2019-09-07 13:45 | NUR ---
RECIEVED REPORT FROM VINAY GARCIA RN, AT 1345. PATIENT TO BE TRANSFERED TO ROOM 311.
[2019-09-07] MEDS ORDERED: VANCOCIN HCL125 MG PO (14:21)
--- NOTE | 2019-09-07 14:34 | NUR ---
PATIENT ARRIVED TO ROOM 311 AT 1358. ADMISSION ASSESSMENT AND H&P COMPLETED WITH THE ASSISTANCE OF THE PATIENT.
--- NOTE | 2019-09-07 16:22 | NUR ---
SHIFT SUMMARY THE PATIENT IS SETTLED INTO BED WATCHING T.V. AT THIS TIME. ALERT AND ORIENTED AND ABLE TO CLEARLY MAKE NEEDS KNOWN. DENIES PAIN AND DISCOMFORT. STRAIGHT CATH'S SELF NEEDED R/T PROSTATE CANCER. PATIENT IS PLEASANT AND COOPERATIVE WITH STAFF. NO ACUTE CHANGES NOTED OR REPORTED AT THIS TIME. WILL CONTINUE TO MONITOR AND PROVIDE CARE NEEDED.
--- NOTE | 2019-09-07 17:21 | NUR ---
Met with patient in ER. Pt very distraught and struggling with making decisions he expresses fear. pt went home and could not get up to get food or prepare meals or do self care. He does not have family has friends here but is hesitant to call he has been more of a burden. Nursing brought him a sandwich and he stated he could not eat it to hard to swallow. Offered him soft foods and he said he would wait. ER social media marketing manager tried to work with him on getting caregiver and meals on wheels. Patient refused. He asked about assisted living. Asked if he had family anywhere he stated no just a few friends left here. He is [facility] service connected for benefits. He went to a SNF after his heart surgery and stated it was awful so he fears going to rehab. We discussed assited living and foster care. St states he has three appointments this week for treatment and follow up. Patient was interested in foster care. Patient would not answer but suspect he has little appetite and is struggling with food tolerance. pt fears being alone was glad to be here. His friends showed up so advised would speak with him more later. Pt may benefit from care at [facility] where more resources. pt KPS score is 30%. Pt is high risk for readmission and suffering will update oncology.will update care managers. pt very deconditioned ventilation is poor due to weakness. dneis pain or symptoms, presented as anxious and distraught.
--- NOTE | 2019-09-08 04:59 | NUR ---
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 He has been undergoing chemotherapy with DR Longoria and has scheduled chemo this SUN. He is able to get 100% support to cover medical but does not have oxygen or services set up to support his terminal illness. PT has implanted mediport rt subclavian implanted 06 02 19. PT is not set up on oxygen at home says he never has been. PT on oximizer 9 l high flow and 87 sat this AM. Does not complain of feeling short of breath. His BP is variable this AM had to try several times and BP 90s over 50s. Will notify MD of need for high flow oxygen and sat not over 87% with that RT updated. Denies dizziness this AM. Has daily orthostatics ordered not done this AM due to hypotension and poor oxygenation
[2019-09-08 05:41] LABS: Hematocrit 26.9 % (37.0-53.0); Hemoglobin 8.3 g/dL (13.5-17.5); Mean Corpuscular HGB 27.1 pg (26.0-34.0); Mean Corpuscular HGB Conc 30.9 g/dL (31.5-36.5); Mean Corpuscular Volume 88 fL (80-100); Mean Platelet Volume 9.8 fL (9.1-12.4); NRBC ABSOLUTE 0.14 K/mm3 (0.00-0.02); NRBC Auto 1.3 /100 WBC (0.0-0.2); Platelet Count 101 K/mm3 (150-400); RDW Coefficient Variation 19.8 % (11.7-14.2); RDW Standard Deviation 62.5 fL (35.1-46.3); Red Blood Cell Count 3.06 M/mm3 (4.30-5.90); White Blood Cell Count 11.14 K/mm3 (4.00-11.30)
[2019-09-08 06:00] LABS: Anion Gap 8 mmol/L (6-16); Blood Urea Nitrogen 7 mg/dL (8-24); Bun/Creatinine Ratio 11.1 (12.0-20.0); CO2, Blood 23 mmol/L (21-32); Chloride, Blood 111 mmol/L (98-108); Creatinine, Blood 0.63 mg/dL (0.60-1.20); Glomerular Filtration Rate >60 (60-); Glucose, Blood 105 mg/dL (70-99); Potassium, Blood 3.8 mmol/L (3.5-5.5); Sodium, Blood 142 mmol/L (136-145)
--- NOTE | 2019-09-08 06:19 | NUR ---
PT continues to have hypotension on recheck VS. 89 /51 oxygen sat 91% on [address] LesliePR updated and 250 ml lactated ringers bolus ordered.
--- NOTE | 2019-09-08 10:55 | NUR ---
NOTIFIED ORTHOSTATIC. STS WILL ORDER FLUIDS
--- NOTE | 2019-09-08 16:40 | NUR ---
NOTIFIED OF V.S-HEART RATE 150 AND B.P. 88/51. ORDER BOLUS 500ML.
--- NOTE | 2019-09-08 16:49 | NUR ---
DID NOT PULL 500ML BAG FOR BOLUS HAD 550 ML IN MAINTENANCE BAG. THAT BAGS RATE CHANGED TO 999ML/HR W/VOL INF 500ML.
--- NOTE | 2019-09-08 17:38 | NUR ---
AWARE B.P. LITTLE LOWER AND HEART RATE LITTLE HIGHER THAN PRE BOLUS. THIS TIME C/O "NOT FEELING WELL." "LIKE I ATE TOO MUCH". ORDER 250 ML BOLUS AND TRANSFER
--- NOTE | 2019-09-08 17:51 | NUR ---
ADVISED PATIENT NAUSEA SUBSIDED AND STARTING TO HAVE FINE CRACKLES IN BASES. D'C FLUIDS
--- NOTE | 2019-09-08 18:00 | NUR ---
PER PCU PATIENT WAS IN AFLUTTER 2:1 BUT CONVERTED AT 1753 TO NS 90'S. BLD PRESS NOW 75/43. PATIENT LYING FLAT. DENIES; C.P OR DISCOMFORT, NAUSEA OR SOB. STS FEELS BETTER
--- NOTE | 2019-09-08 18:46 | NUR ---
ALERT. ORIENTED. PLEASANT. COOPERATIVE. ON 7LPM OXIMYZER. TELE ON AND AT THIS TIME SR IN 90'S. DENIES; SOB, C.P/DISCOMFORT OR NAUSEA. BLD PRESS IN 80'S AT THIS TIME. AWAITING BED IN PCU. POOR APPETITE. BRUISING BUE W/SCABS BILATERAL ELBOWS FROM FREQUENT FALLS AT HOME. FAINT CRACKLES BILATERAL LOWER LOBES, CLEAR UPPER LOBES. WCTM.
--- NOTE | 2019-09-08 19:35 | NUR ---
PT. TRANSFERRED TO PCU 16. REPORT GIVEN TO GILES ROBERTS. TRANSPORTED VIA BED BY NURSING STAFF.
--- NOTE | 2019-09-08 22:26 | NUR ---
ASSUMED CARE - TRANSFER DOWN FROM MEDICAL FLOOR - NOC SHIFT PATIENT ARRIVED TO PCU ROOM 16 AT 1938. TRANSFERED TO UNIT BED FROM [facility] WITH STAND BY ASSISTANCE, TOLERATED PASSIVELY. PATIENT DENIES ANY PAIN AT THIS TIME. PATIENT TRANSFERED DOWN DUE TO HYPOTENSION. VSS WITH SOME MILD HYPOTENSION NOTED. PATIENT REMAIN IN NSR TO SINUS TACH FROM 90-110'S. PATIENT ALERT AND ORIENTED TO SELF, LOCATION AND SITUATION. PATIENT PLEASANT AND COOPERATIVE WITH CARE. PATIENT SELF CATHS DUE TO PROSTATE CANCER W/ METS TO BONE AND LUNG. PATIENT CURRENTLY ON 7 LPM OXYMIZER - LUNG SOUNDS CLEAR. PATIENT HAS POOR PERIPHERAL READINGS WITH PULSE OX- EAR USED. CALL LIGHT W/I REACH. WILL CONTINUE TO MONITOR.
[2019-09-09 04:06] LABS: BASOPHILS ABSOLUTE AUTO 0.04 K/mm3 (0.00-0.23); BASOPHILS PERCENT AUTO 0 % (0-2); EOSINOPHILS PERCENT AUTO 0 % (0-6); Hematocrit 24.9 % (37.0-53.0); Hemoglobin 7.7 g/dL (13.5-17.5); IMMATURE GRAN ABSOLUTE AUTO 0.85 K/mm3 (0.00-0.10); IMMATURE GRAN PERCENT AUTO 9 % (0-1); LYMPHOCYTES ABSOLUTE AUTO 0.69 K/mm3 (0.84-5.20); LYMPHOCYTES PERCENT AUTO 8 % (21-46); MONOCYTES ABSOLUTE AUTO 0.68 K/mm3 (0.16-1.47); MONOCYTES PERCENT AUTO 8 % (4-13); Mean Corpuscular HGB 27.5 pg (26.0-34.0); Mean Corpuscular HGB Conc 30.9 g/dL (31.5-36.5); Mean Corpuscular Volume 89 fL (80-100); Mean Platelet Volume 10.1 fL (9.1-12.4); NEUTROPHILS PERCENT AUTO 75 % (41-73); NRBC Auto 1.1 /100 WBC (0.0-0.2); Platelet Count 110 K/mm3 (150-400); RDW Coefficient Variation 19.9 % (11.7-14.2); RDW Standard Deviation 64.4 fL (35.1-46.3); White Blood Cell Count 9.06 K/mm3 (4.00-11.30)
[2019-09-09 04:23] LABS: Anion Gap 10 mmol/L (6-16); Blood Urea Nitrogen 6 mg/dL (8-24); Bun/Creatinine Ratio 9.1 (12.0-20.0); CO2, Blood 21 mmol/L (21-32); Calcium, Blood 6.7 mg/dL (8.5-10.1); Chloride, Blood 109 mmol/L (98-108); Creatinine, Blood 0.66 mg/dL (0.60-1.20); Glomerular Filtration Rate >60 (60-); Glucose, Blood 80 mg/dL (70-99); Potassium, Blood 3.7 mmol/L (3.5-5.5); Sodium, Blood 140 mmol/L (136-145)
[2019-09-09 05:17] LABS: BAND PERCENT MAN 6 % (0-8); BASOPHILS PERCENT MAN 0 % (0-2); EOSINOPHILS PERCENT MAN 0 % (0-6); LYMPHOCYTES ABSOLUTE MAN 0.54 K/mm3 (0.84-5.20); LYMPHOCYTES PERCENT MAN 6 % (21-46); METAMYELOCYTE ABSOLUTE MAN 0.18 K/mm3 (0.00-0.00); METAMYELOCYTE PERCENT MAN 2 % (0-0); MONOCYTES ABSOLUTE MAN 0.18 K/mm3 (0.16-1.47); MONOCYTES PERCENT MAN 2 % (4-13); MYELOCYTE ABSOLUTE MAN 0.18 K/mm3 (0.00-0.00); MYELOCYTE PERCENT MAN 2 % (0-0); NEUTROPHILS ABSOLUTE MAN 7.97 K/mm3 (1.96-9.15); SEG NEUTROPHILS PERCENT MAN 82 % (41-73); TOTAL CELLS COUNTED 100
--- NOTE | 2019-09-09 07:12 | NUR ---
PCU NOC SHIFT SUMMARY PATIENT REMAINS ALERT AND ORIENTED X4. RESP E/U AT REST ON 7 LPM OXYMIZER - PATIENT DOES BECOME SOB W/ EXCERTION. PATIENT DENIES ANY PAIN T/O SHIFT. PATIENT REMAINS HYPOTENSIVE T/O SHIFT - SEE VS. HR REMAINS 84 SR WITH 1 CARDIAC EVENT NOTED WHEN PATIENT HAD SOME MILD ST CHANGES FOR APPROX 5 MINS - SEE CHART - NO PAIN REPORTED. PATIENT RESTED WELL T/O SHIFT AND DENIES ANY NEEDS. SELF CATHS WITH HOME CATHETERS. CALL LIGHT W/I REACH. REPORT GIVEN TO VICKY ROBERTS.
--- NOTE | 2019-09-09 07:56 | NUR ---
Bedside report received from Lazara Pascual RN. The pt states that he cannot go home from the hopital, because he is incapable of caring for himself independently. States that he is planning on being discharged from the hospital and being transferred to a custodial care facility at the [facility]. I have no record in the chart of discharge planning working on this currently; will follow up with this today.
--- NOTE | 2019-09-09 10:54 | NUR ---
Noted spo2 drops to 81% while sleeping, and wearing oxymizer (in his mouth, as he tends to breathe through his mouth) at delivery rate of 15 l/min. When awakened by the alarm of the continuous oxymeter, he talks to me, denies difficulty breathing, and spo2 improves to 90% right away.
--- NOTE | 2019-09-09 11:22 | NUR ---
Patient is desatting to low 80's and 70's when asleep, saturation jumps back to low 90's when patient is awake. Placed call to Dr Del Rosario who said he will order a CPAP/BIPAP protocol so that Clinic Charge Nurse can treat as needed.
--- NOTE | 2019-09-09 12:10 | NUR ---
Midodrine given per orders for hypotension.
--- NOTE | 2019-09-09 13:47 | NUR ---
Pt's heart rate noted 123-130 bpm with significant artifact while wearing the CPAP, while pt was self-catheterizing his bladder. Declines assistance from staff at the time.
--- NOTE | 2019-09-09 19:43 | NUR ---
SHIFT SUMMARY PATIENT RESPONDED WELL TO INTERVENTIONS AIMED AT MAINTAINING HIS OXYGEN SATURATION LEVELS. OBTAINED ORDER FOR CPAP/BIPAP INSTITUTED BY RESP THERAPY WHICH WAS INSTRUMENTAL IN KEEPING PT'S SATS ABOVE 88% WHEN RESTING/NAPPING. PATIENT SELF-CATHED APPROPRIATELY, VOIDING MED DARK VIOLETA URINE, AND HAD ONE SMALL BOWEL MOVEMENT THIS SHIFT. PATIENT WAS ABLE TO MAINTAIN BETTER OXYGENATION WITH OXYMIZER IN MOUTH THAN IN NARES, BUT NEEDS REMINDING TO PUT IT IN NARES WHEN EATING OR TALKING. PT DENIED PAIN T/O SHIFT, OTHERWISE TREATED PER MD ORDER AND UNIT PROTOCOL WITH NO EMERGENT ISSUES. PATIENT HAS HISTORY OF NOT ENGAGING WITH DISCHARGE PLANS ONCE DC'D FROM [facility], AND SIGNIFICANT EFFORT WAS MADE TODAY TO CLARIFY AND SECURE A DISCHARGE PLAN WITHIN THE PATIENT'S WISHES. PT SLEEPING AT CHANGE OF SHIFT WITH OXYMIZER IN MOUTH, BED LOCKED AND LOW, CALL LIGHT W/IN REACH, REPORT GIVEN TO ONCOMING SHIFT AT 1900
[2019-09-10 02:01] LABS: Hematocrit 23.3 % (37.0-53.0); Hemoglobin 7.4 g/dL (13.5-17.5); Mean Corpuscular HGB 27.9 pg (26.0-34.0); Mean Corpuscular HGB Conc 31.8 g/dL (31.5-36.5); Mean Corpuscular Volume 88 fL (80-100); Mean Platelet Volume 9.1 fL (9.1-12.4); NRBC ABSOLUTE 0.08 K/mm3 (0.00-0.02); NRBC Auto 0.8 /100 WBC (0.0-0.2); Platelet Count 110 K/mm3 (150-400); RDW Coefficient Variation 20.1 % (11.7-14.2); RDW Standard Deviation 63.3 fL (35.1-46.3); Red Blood Cell Count 2.65 M/mm3 (4.30-5.90); White Blood Cell Count 9.86 K/mm3 (4.00-11.30)
[2019-09-10 02:15] LABS: Anion Gap 8 mmol/L (6-16); Blood Urea Nitrogen 6 mg/dL (8-24); Bun/Creatinine Ratio 8.9 (12.0-20.0); CO2, Blood 23 mmol/L (21-32); Calcium, Blood 7.1 mg/dL (8.5-10.1); Chloride, Blood 108 mmol/L (98-108); Creatinine, Blood 0.67 mg/dL (0.60-1.20); Glomerular Filtration Rate >60 (60-); Glucose, Blood 115 mg/dL (70-99); Magnesium, Blood 1.4 mg/dL (1.6-2.4); Phosphorus, Blood 2.3 mg/dL (2.5-4.9); Sodium, Blood 139 mmol/L (136-145)
--- NOTE | 2019-09-10 06:32 | NUR ---
a+o, trouble keeping hr and bp under control, would go in to runs of afib/flutter, tried medication but no obvious difference btwn time in afib with med or without, also gave 1500 LR for low bp, denies symptoms, call light in reach, will continue to monitor and treat until share sbar report with staff and pt, 12L via optimizer, had to increase level of 02 to keep stats above 85%, denies pain
--- NOTE | 2019-09-10 08:10 | NUR ---
ASSUMED CARE OF PATIENT AT 0700 W REPORT FROM CHANO ROBERTS. PATIENT ASLEEP IN BED, ROUSABLE BY VOICE. O2 SATURATION AT 91%, RESPIRATIONS EASY AND W/O EFFORT. O2 THROUGH OXYMIZER AT 10L. HR 94. WILL CONTINUE TO MONITOR. BED LOCKED AND LOW, CALL LIGHT W/IN REACH.
--- NOTE | 2019-09-10 12:26 | NUR ---
VISITORS/FAMILY IN ROOM WITH PATIENT. PATIENT STATES "I'M BEGINNING TO THINK I'M NOT GONNA MAKE IT" THIS NURSE INTRODUCES THE TOPIC OF HOSPICE AN OPTION WORTH CONSIDERING, ALONG WITH BASIC EXPLANATION AND RATIONALE. TOPIC IS ACCEPTED, NOT AVOIDED, BUT DOES NOT BECOME THE FOCUS OF CONVERSATION. WILL CONTINUE TO AID IN COMMUNICATION
--- NOTE | 2019-09-10 18:51 | NUR ---
Telephone report given to Griselda ROBERTS at this time. anticipate transfer to room 303 shortly.
[2019-09-11 04:49] LABS: Hematocrit 27.9 % (37.0-53.0); Hemoglobin 9.1 g/dL (13.5-17.5); Mean Corpuscular HGB 27.7 pg (26.0-34.0); Mean Corpuscular HGB Conc 32.6 g/dL (31.5-36.5); Mean Platelet Volume 9.9 fL (9.1-12.4); NRBC ABSOLUTE 0.09 K/mm3 (0.00-0.02); Platelet Count 113 K/mm3 (150-400); RDW Coefficient Variation 18.9 % (11.7-14.2); RDW Standard Deviation 56.1 fL (35.1-46.3); Red Blood Cell Count 3.29 M/mm3 (4.30-5.90); White Blood Cell Count 9.25 K/mm3 (4.00-11.30)
[2019-09-11 04:55] LABS: Mean Corpuscular Volume 85 fL (80-100)
[2019-09-11 05:11] LABS: Alanine Aminotransfer (ALT/SGP 14 U/L (12-78); Albumin, Blood 1.6 g/dL (3.4-5.0); Albumin/Globulin Ratio 0.6 (0.8-1.8); Alk Phos 88 U/L (50-136); Anion Gap 7 mmol/L (6-16); Aspartate Aminotrans (AST/SGOT 47 U/L (12-37); Bilirubin, Total 1.4 mg/dL (0.1-1.0); Blood Urea Nitrogen 8 mg/dL (8-24); Bun/Creatinine Ratio 13.7 (12.0-20.0); CO2, Blood 24 mmol/L (21-32); Chloride, Blood 109 mmol/L (98-108); Creatinine, Blood 0.59 mg/dL (0.60-1.20); Globulin, Blood 2.7 g/dL (2.2-4.0); Glomerular Filtration Rate >60 (60-); Glucose, Blood 98 mg/dL (70-99); Sodium, Blood 140 mmol/L (136-145); Total Protein, Blood 4.3 g/dL (6.4-8.2)
[2019-09-11 05:37] LABS: BAND PERCENT MAN 2 % (0-8); BASOPHILS PERCENT MAN 0 % (0-2); EOSINOPHILS PERCENT MAN 0 % (0-6); LYMPHOCYTES ABSOLUTE MAN 0.27 K/mm3 (0.84-5.20); LYMPHOCYTES PERCENT MAN 3 % (21-46); METAMYELOCYTE ABSOLUTE MAN 0.18 K/mm3 (0.00-0.00); METAMYELOCYTE PERCENT MAN 2 % (0-0); MONOCYTES ABSOLUTE MAN 0.83 K/mm3 (0.16-1.47); MONOCYTES PERCENT MAN 9 % (4-13); MYELOCYTE ABSOLUTE MAN 0.09 K/mm3 (0.00-0.00); MYELOCYTE PERCENT MAN 1 % (0-0); NEUTROPHILS ABSOLUTE MAN 7.86 K/mm3 (1.96-9.15); SEG NEUTROPHILS PERCENT MAN 83 % (41-73); TOTAL CELLS COUNTED 100
--- NOTE | 2019-09-11 06:17 | NUR ---
PHYSICIAN COMMUNICATION CONTACTED THE CRAFT SUPERINTENDENT PHYSICIAN AT 0610 TO ALERT HER THAT THIS PATIENT HAS BEEN EXPERIENCING LOW BLOOD PRESSURES. SHE SAID TO RECHECK HIS BP IN TWENTY MINUTES AND CALL HER BACK IF THE BP IS STILL LOW.
--- NOTE | 2019-09-11 06:28 | NUR ---
SHIFT SUMMARY PATIENT TRANSFERRED TO THE UNIT FROM PCU WHILE INFUSING WITH A UNIT OF PRBC'S. HE RECEIVED ANOTHER UNIT SINCE ARRIVING. HE HAS BEEN EXPERIENCING LOW BLOOD PRESSURES OVERNIGHT. THE HARVEST WORKER FIELD CROP PHYSICIAN IS AWARE. OVERNIGHT HE WORE A CPAP MACHINE WITH A 15 LITER O2 OXYGEN BLEED IN. WHILE AWAKE HE WEARS AN OXIMIZER RUNNING AT 10 LITERS O2. BED IN LOWEST POSITION WITH WHEELS LOCKED. CALL LIGHT AND BELONGINGS WITHIN REACH. REPORT GIVEN TO ONCOMING RN.
--- NOTE | 2019-09-11 11:52 | NUR ---
Met with patient he is on bipap. Nursing states his sats are low on oximizer due to mouth brething. Pt alert tolerating bipap makes him comfortable. He denies headaches or sore throat no visual or auditory disturbance. denies air hunger or chest wall pain. denies nausea. He spoke with doctor Von today and states he understands no more treatment and that he is very near end of life. He expresses acceptance. He feels better with support he was fearfull at home. Ad[facility] He was very interested in going to the facility. Theraputic time with patient comforting touch and reassureance of respect and support and that he is not alone. Advised hospitalits and care manger and will review with Resp[facility] therapitst [facility].
--- NOTE | 2019-09-11 19:13 | NUR ---
NO ACUTE CHANGES NOTED THIS SHIFT. PT IS ANTICIPATING DISCHARGE TOMORROW, NO C/O OF PAIN OR SOB. HI FLOW OXYMIZER AND BIPAP, CONT BIOX REMAIN IN USE. WILL CONTINUE TO MONITOR AND REPORT TO ONCOMING RN
--- NOTE | 2019-09-12 05:20 | NUR ---
SHIFT SUMMARY AT 2225 IT WAS NOTICED THAT THE PATIENT WAS HAVING A HEART RATE SUSTAINING AROUND 150 BPM. CALLED THE RING STAMPER PHYSICIAN AT 2230 AND GOT A HOLD OF HER AT 2251. SHE DID NOT WISH TO PROCEED WITH ANY INTERVENTIONS THE PATIENT WAS ASYMPTOMATIC AND PLANNING ON DISCHARGING TO THE IN HOSPITAL ON HOSPICE IN THE MORNING. AFTER CONSULTING WITH THE CHARGE NURSE AND THE NURSE ABNORMAL PSYCHOLOGY TEACHER, IT WAS NOTICED THAT THIS TYPE OF SCENARIO HAD HAPPENED WITH THE PATIENT BEFORE AND HAD THERAPEUTICALLY RESPONDED TO CERTAIN MEDICATIONS BEFORE. I CALLED THE RING STAMPER PHYSICIAN AGAIN AT 2320 TO RELAY THE INFORMATION GATHERED. SHE PUT IN ORDERS FOR TELEMETRY, DILTIAZEM (IV), AND PO MIDODRENE. THE MEDICATIONS WERE GIVEN PRESCRIBED. AT 2353 HIS HEART RATE WAS 152 AND HIS BP WAS 94/52. THE RING STAMPER PHYSICIAN ORDERED ANOTHER DOSE OF DILTIAZEM TO HELP BRING THE HEART RATE DOWN. I CALLED AGAIN, AFTER ADMINISTERING THE MEDICATION TO REPORT WHAT HIS MOST RECENT HEART RATE WAS. AT 0123 I CALLED AGAIN AND GOT A HOLD OF DR KOVACS AT 0130 AND TOLD HIM ABOUT THE HIGH HEART RATE AND THE PATIENT BEING ASYMPTOMATIC. HE ORDERED 5 MG LOPRESSOR IV AND AN EKG. THE MEDICATION HAD MINIMAL EFFECT ON HIS HEART RATE. AROUND [address] KOVACS IN THE HALLWAY AND TOLD HIM THAT THE PATIENT WAS PLANNING ON GOING TO THE IN ON HOSPICE. DR KOVACS THEN SAID TO STOP WORRYING ABOUT THE HEART RATE AND THAT HE WOULD LOOK IN HIS CHART AND DECIDE WHERE TO GO FROM THERE. SINCE THEN THE PATIENT HAS SPONTANEOUSLY CHANGED BACK TO SINUS RHYTHM IN THE 80'S. BOTH IV'S ARE PATENT AND FLUSHED. BED IN LOWEST POSITION WITH WHEELS LOCKED. CALL LIGHT AND BELONGINGS WITHIN REACH. REPORT GIVEN TO JACK ROBERTS.
[2019-09-12] MEDS ORDERED: MORP20L PO (08:52)
--- NOTE | 2019-09-12 10:16 | NUR ---
Pt visit this AM. Pt resting in bed and denies pain at this time. He reports mild dyspnea that worsens with exertion. Engaged in therapeutic discussion regarding discharging to the [facility]. Pt is agreeable and expresses no concerns. He states this is no way to live and is at peace with his prognosis. No concerns reported at this time. Spoke with bedside ARMANDO Solomon and discussed case. Spoke with Special Effects Specialist Sonali and discussed case. Pt will discharge to [facility] today. Palliative Care will remain available.
--- NOTE | 2019-09-12 12:30 | NUR ---
DISCHARGE REPORT CALLED [facility] TO MARY ROBERTS. QUESTIONS/CONCERNS ANSWERED. THIS RN WILL BE AVAILABLE UNTIL 1900 IF FURTHER QUESTIONS ARISE. PT TRANSPORTED VIA [facility] WITH [facility].
== END 2019-09-12 12:09 | disposition hospice, home (50) | DRG 189 ==
LOC: ER 10:07 → MEDS 12:59 → PCU 09-08 19:36 → MEDS 09-10 19:18
PROVIDERS: Emergency Medicine; Internal Medicine; ADMIT Internal Medicine
PROC: 5A09357 Assistance with Respiratory Ventilation, Less than 24 Consecutive Hours, Continuous Positive Airway Pressure (ICD-10-PCS; principal; 2019-09-11)
PROC: 30233N1 Transfusion of Nonautologous Red Blood Cells into Peripheral Vein, Percutaneous Approach (ICD-10-PCS; 2019-09-11)
DX: J96.01 Acute respiratory failure with hypoxia (principal); E27.40 Unspecified adrenocortical insufficiency; I48.92 Unspecified atrial flutter; C79.51 Secondary malignant neoplasm of bone; J84.9 Interstitial pulmonary disease, unspecified; C78.00 Secondary malignant neoplasm of unspecified lung; Z51.5 Encounter for palliative care; J81.1 Chronic pulmonary edema; I25.10 Atherosclerotic heart disease of native coronary artery without angina pectoris; I48.0 Paroxysmal atrial fibrillation; I10 Essential (primary) hypertension; Z95.1 Presence of aortocoronary bypass graft; Z87.891 Personal history of nicotine dependence; I65.23 Occlusion and stenosis of bilateral carotid arteries; I35.0 Nonrheumatic aortic (valve) stenosis; E88.09 Other disorders of plasma-protein metabolism, not elsewhere classified; D70.9 Neutropenia, unspecified; I95.9 Hypotension, unspecified; J43.9 Emphysema, unspecified; R62.7 Adult failure to thrive; Z68.23 Body mass index [BMI] 23.0-23.9, adult; I95.1 Orthostatic hypotension; D63.0 Anemia in neoplastic disease; C61 Malignant neoplasm of prostate
CPT/HCPCS: 36415; 36416; 36430; 71045; 71260; 80048; 80053; 80162; 83735; 84100; 84484; 85025; 85027; 86850; 86900; 86901; 86923; 93005; 93010; 94640; 94660; 94760; 94762; 96360; 96361; 97110; 97162; 97165; 97530; 99285-25; J1650; J2405; J7030; J7120; P9016; Q9967